=== PATIENT | female | born 1970 | race Hispanic/Latino ===

== ENCOUNTER 2018-06-17 17:13 | Emergency (ER) | payer MEDICAID, OTHER ==
[2018-06-17 17:37] VITALS: BP 104/64; PULSE 80; TEMP 98.6; O2SAT 97
[2018-06-17] MEDS ORDERED: Sodium Chloride 0.9% Inh Soln (3mL) UD INH ONE (18:13)
--- NOTE | 2018-06-17 18:18 | C.PDOC ---
History Of Present Illness 47 y/o female comes in complaining of a cough, headache, and pleuritic chest pain with coughing for the last 3 days, associated with subjective fever. Patient reports shes been taking nyquil with minimal relief. Denies any other associated symptoms. Time Seen by Provider: 06/17/18 17:47 Chief Complaint (Nursing): Cough, Cold, Congestion History Per: Patient History/Exam Limitations: no limitations Onset/Duration Of Symptoms: Days Current Symptoms Are (Timing): Still Present Past Medical History Reviewed: Historical Data, Nursing Documentation, Vital Signs Vital Signs: Last Vital Signs Temp 98.6 F 06/17/18 17:34 Pulse 80 06/17/18 17:34 Resp 17 06/17/18 17:34 BP 104/64 06/17/18 17:34 Pulse Ox 97 06/17/18 17:34 - Medical History PMH: No Chronic Diseases Family History: States: Unknown Family Hx - Social History Hx Alcohol Use: No Hx Substance Use: No - Immunization History Hx Tetanus Toxoid Vaccination: Yes Hx Influenza Vaccination: No Hx Pneumococcal Vaccination: No Review Of Systems Constitutional: Positive for: Fever (subjective). Negative for: Chills ENT: Negative for: Nose Congestion, Throat Pain Cardiovascular: Positive for: Chest Pain (pleuritic chest pain with coughing) Respiratory: Positive for: Cough. Negative for: Shortness of Breath Gastrointestinal: Negative for: Nausea, Vomiting Genitourinary: Negative for: Dysuria Skin: Negative for: Rash Neurological: Positive for: Headache Physical Exam - Physical Exam Appears: Non-toxic, No Acute Distress Skin: Warm, Dry Eye(s): bilateral: PERRL Ear(s): Bilateral: Normal Oral Mucosa: Moist Throat: No Erythema, No Exudate, Other (uvula midline) Neck: Supple Lymphatic: No Adenopathy Cardiovascular: Rhythm Regular, No Murmur Respiratory: No Rales, No Rhonchi, No Wheezing, Other (Coarse sounding cough) Extremity: Bilateral: Atraumatic, Normal Color And Temperature, Normal ROM Neurological/Psych: Oriented x3, Normal Speech, Normal Cognition ED Course And Treatment O2 Sat by Pulse Oximetry: 97 (RA) Pulse Ox Interpretation: Normal Medical Decision Making Medical Decision Making: Plan: --Chest XR --Tylenol PO wet read cxr neg. dec coughing after saline nebulizer. d/ c home with supportive care, tessalon Disposition Counseled Patient/Family Regarding: Studies Performed, Diagnosis, Need For Followup, Rx Given - Disposition Referrals: Eloy Shepherd MD [Staff Provider] - Disposition: HOME/ ROUTINE Disposition Time: 18:54 Condition: GOOD Additional Instructions: Please drink increased fluids; avoid dairy- make phlegm thick. Take Robitussen DM per directions. Use Albuterol inhaler 2 puffs every 6 hours for cough if needed. Follow up with your doctor on Tuesday. Tylenol for pain every 6 hours. 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 - Scribe Statement The provider has reviewed the documentation as recorded by the Scribmariano Barkley All medical record entries made by the Scribmariano were at my direction and personally dictated by me. I have reviewed the chart and agree that the record accurately reflects my personal performance of the history, physical exam, medical decision making, and the department course for this patient. I have also personally directed, reviewed, and agree with the discharge instructions and disposition.
[2018-06-17 19:20] VITALS: RESP 20
--- NOTE | 2018-06-18 14:56 | RAD ---
Date of service: 06/17/2018 HISTORY: cough COMPARISON: No prior. TECHNIQUE: Chest PA and lateral views FINDINGS: LUNGS: The interstitial markings are slightly increased and coarsened; rule out sequela of reactive/inflammatory airway disease or viral illness. PLEURA: No significant pleural effusion identified. No pneumothorax apparent. CARDIOVASCULAR: No aortic atherosclerotic calcification present. Cardiomegaly no pulmonary vascular congestion. OSSEOUS STRUCTURES: No significant abnormalities. VISUALIZED UPPER ABDOMEN: Normal. OTHER FINDINGS: None. IMPRESSION: The interstitial markings are slightly increased and coarsened; rule out sequela of reactive/inflammatory airway disease or viral illness.
== END 2018-06-17 19:20 | disposition home or self-care (01) ==
LOC: C.ER 17:13
DX: J06.9 Acute upper respiratory infection, unspecified (principal)